=== PATIENT | male | born 1950 | race American Indian/Alaskan Native ===

== ENCOUNTER 2016-09-12 09:10 | Outpatient (CLI) | payer MEDICARE ==
--- NOTE | 2016-09-13 10:45 | Vascular Lab Report ---
ABDOMINAL AORTA DUPLEX EXAM: REASON FOR EXAM: Concern for abdominal aortic aneurysm with risk factors of abdominal bruit. COMMENTS ON THE AORTA: The aorta is patent. No aneurysmal dilatation is noted. Mild atherosclerotic change is identified. The proximal aorta measures up to 2.6 x 2.7 5 cm. The mid aorta measures up to 1.9 x 1.9 cm. The distal aorta measures up to 1.59 x 1.6 cm. COMMENTS ON THE COMMON ILIAC ARTERIES: The common iliac arteries are patent. No aneurysmal dilatation is noted. Mild atherosclerotic change is identified. The right common iliac artery measures up to 1.16 x 0.99 cm. The left common iliac artery measures up to 0.87 x 0.89 cm. IMPRESSION: No evidence of abdominal aortic aneurysm.
== END 2016-09-12 09:11 | disposition home or self-care (01) ==
LOC: US 09:10
PROVIDERS: ATTEND Internal Medicine
DX: I71.4 Abdominal aortic aneurysm, without rupture (principal); R09.89 Other specified symptoms and signs involving the circulatory and respiratory systems; F17.210 Nicotine dependence, cigarettes, uncomplicated
CPT/HCPCS: 93979